=== PATIENT | male | born 1960 | race Caucasian/White ===

== ENCOUNTER 2020-01-27 12:10 | Emergency (ER) | payer SELFPAY ==
[~2020-01-27] VITALS: Ht 165.1 cm; Wt 67.1 kg
--- NOTE | 2020-01-27 13:15 | NUR ---
Patient discharged to home in stable condition. Written and verbal after care instructions given. Patient verbalizes understanding of instructions. Stressed follow up or return to ER for worsening s/s.
== END 2020-01-27 13:16 | disposition home or self-care (01) ==
LOC: ER 12:10
DX: J06.9 Acute upper respiratory infection, unspecified (principal); Z20.828 Contact with and (suspected) exposure to other viral communicable diseases; E11.9 Type 2 diabetes mellitus without complications
CPT/HCPCS: 71045; A4663